=== PATIENT | female | born 1970 | race African-American/Black ===

== ENCOUNTER 2020-09-11 08:40 | Emergency (ER) | payer MEDICAID ==
[2020-09-11] MEDS ORDERED: Morphine 4 MG/ML Syringe IVPUSH PRN (08:51)
[2020-09-11] MEDS ORDERED: Sodium Chloride 0.9% 10 ML Syringe FLUSH PRN (08:51)
[2020-09-11] MEDS ORDERED: Nitroglycerin 0.4 MG Tab.SL SL PRN (08:51)
[2020-09-11] MEDS ORDERED: Ondansetron 4 MG/2 ML SDV IVPUSH ONE (08:52)
--- NOTE | 2020-09-11 08:53 | EDM.PDOC ---
ED HPI GENERAL MEDICAL PROBLEM - General Stated Complaint: CHEST PAIN Time Seen by Provider: 09/11/20 08:50 Source of Information: Reports: Patient, EMS, RN Notes Reviewed History Limitations: Reports: Language Barrier - History of Present Illness INITIAL COMMENTS - FREE TEXT/NARRATIVE: 50-year-old female presents emergency department a complaint of chest pain, there is a significant language barrier no interpreting services are available due to current outage of software, believed to be sudden onset this morning, did receive 4 baby aspirin this morning by EMS Epigastric Pain Score (Numeric/FACES): 7 - Related Data Allergies Allergy/AdvReac Type Severity Reaction Status Date / Time No Known Allergies Allergy Verified 09/11/20 10:17 Home Meds: Home Meds DULoxetine [Cymbalta] 30 mg PO DAILY 09/11/20 [History] Gabapentin [Neurontin] 800 mg PO TID 09/11/20 [History] Pantoprazole Sodium [Protonix] 40 mg PO DAILY 09/11/20 [History] Sucralfate [Carafate] 1 gm PO QID 09/11/20 [History] hydrOXYzine HCL [Hydroxyzine HCl] 10 mg PO Q6HR PRN 09/11/20 [History] metFORMIN [Glucophage XR] 500 mg PO DAILY 09/11/20 [History] traZODone 50 mg PO BEDTIME 09/11/20 [History] ED ROS GENERAL - Review of Systems Review Of Systems: Unable To Obtain Reason Not Obtained: Language barrier no translation available ED EXAM, GENERAL - Physical Exam Exam: See Below Exam Limited By: Language Barrier General Appearance: Alert, Moderate Distress Respiratory/Chest: No Respiratory Distress, Lungs Clear, Normal Breath Sounds, No Accessory Muscle Use, Chest Non-Tender Cardiovascular: Regular Rate, Rhythm, No Murmur GI/Abdominal: Soft, Non-Tender Course - Vital Signs Last Recorded V/S: Last Vital Signs Temp 96.4 F L 09/11/20 09:14 Pulse 108 H 09/11/20 14:27 Resp 16 09/11/20 14:27 BP 139/89 09/11/20 14:27 Pulse Ox 97 09/11/20 14:27 - Orders/Labs/Meds Orders: Active Orders 24 hr Category Date Time Status Cardiac Monitoring [RC] .As Directed Care 09/11/20 08:51 Active EKG Documentation Completion [RC] ASDIRECTED Care 09/11/20 08:52 Active Peripheral IV Care [RC] . DIRECTED Care 09/11/20 08:52 Active Morphine Med 09/11/20 08:51 Active 4 mg IVPUSH Q10M PRN Nitroglycerin [Nitrostat] Med 09/11/20 08:51 Active 0.4 mg SL Q5M PRN Sodium Chloride 0.9% [Saline Flush] Med 09/11/20 08:51 Active 10 ml FLUSH ASDIRECTED PRN Peripheral IV Insertion Adult [OM.PC] Stat Oth 09/11/20 08:51 Ordered Saline Lock Insert [OM.PC] Stat Oth 09/11/20 08:51 Ordered EKG 12 Lead [EK] Stat Ther 09/11/20 08:52 Ordered Medication Orders Morphine Sulfate (Morphine) 4 mg IVPUSH Q10M PRN PRN Reason: Chest Pain Stop: 09/12/20 08:51 Last Admin: 09/11/20 09:12 Dose: 4 mg Documented by: PREILOR Nitroglycerin (Nitrostat) 0.4 mg SL Q5M PRN PRN Reason: Chest Pain Stop: 09/12/20 08:51 Last Admin: 09/11/20 09:14 Dose: 0.4 mg Documented by: PREILOR Sodium Chloride (Saline Flush) 10 ml FLUSH ASDIRECTED PRN PRN Reason: Keep Vein Open Labs: Laboratory Tests 09/11/20 09/11/20 09/11/20 Range/Units 09:00 09:00 12:11 WBC 11.2 H (4.5-11.0) K/uL RBC 4.19 (3.30-5.50) M/uL Hgb 12.8 (12.0-15.0) g/dL Hct 39.2 (36.0-48.0) % MCV 94 (80-98) fL MCH 31 (27-31) pg MCHC 33 (32-36) % Plt Count 207 (150-400) K/uL Neut % (Auto) 76 H (36-66) % Lymph % (Auto) 17 L (24-44) % [place] % (Auto) 5 (2-6) % Eos % (Auto) 1 L (2-4) % Baso % (Auto) 1 (0-1) % Sodium 138 L (140-148) mmol/L Potassium 3.3 L (3.6-5.2) mmol/L Chloride 101 (100-108) mmol/L Carbon Dioxide 28 (21-32) mmol/L Anion Gap 12.3 (5.0-14.0) mmol/L BUN 16 (7-18) mg/dL Creatinine 0.7 (0.6-1.0) mg/dL Est Cr Clr Drug Dosing 69.83 mL/min Estimated GFR (MDRD) > 60 (>60) Glucose 167 H (74-106) mg/dL Calcium 8.9 (8.5-10.1) mg/dL Total Bilirubin 0.2 (0.2-1.0) mg/dL AST 17 (15-37) U/L ALT 18 (12-78) U/L Alkaline Phosphatase 99 (46-116) U/L Troponin I < 0.017 (0.000-0.056) ng/mL Total Protein 8.2 (6.4-8.2) g/dL Albumin 3.6 (3.4-5.0) g/dL Globulin 4.6 H (2.3-3.5) g/dL Albumin/Globulin Ratio 0.8 L (1.2-2.2) Lipase 157 (73-393) U/L Urine Opiates Screen Presumptive positive H (NEGATIVE) Ur Oxycodone Screen Negative (NEGATIVE) Urine Methadone Screen Negative (NEGATIVE) Ur Propoxyphene Screen Negative (NEGATIVE) Ur Barbiturates Screen Negative (NEGATIVE) Ur Tricyclics Screen Negative (NEGATIVE) Ur Phencyclidine Scrn Negative (NEGATIVE) Ur Amphetamine Screen Negative (NEGATIVE) U Methamphetamines Scrn Negative (NEGATIVE) Urine MDMA Screen Negative (NEGATIVE) U Benzodiazepines Scrn Presumptive positive H (NEGATIVE) U Cocaine Metab Screen Negative (NEGATIVE) U Marijuana (THC) Screen Presumptive positive H (NEGATIVE) Meds: Medications Generic Name Dose Route Start Last Admin Trade Name Freq PRN Reason Stop Dose Admin Morphine Sulfate 4 mg 09/11/20 08:51 09/11/20 09:12 Morphine IVPUSH 09/12/20 08:51 4 mg Q10M PRN Administration Chest Pain Nitroglycerin 0.4 mg 09/11/20 08:51 09/11/20 09:14 Nitrostat SL 09/12/20 08:51 0.4 mg Q5M PRN Administration Chest Pain Sodium Chloride 10 ml 09/11/20 08:51 Saline Flush FLUSH ASDIRECTED PRN Keep Vein Open Discontinued Medications Generic Name Dose Route Start Last Admin Trade Name Freq PRN Reason Stop Dose Admin Al Hydroxide/Mg Hydroxide 15 0 ml 09/11/20 09:27 09/11/20 09:47 ml/ Lidocaine HCl 15 ml PO 09/11/20 09:28 30 ml ONETIME ONE Administration Fentanyl 50 mcg 09/11/20 09:03 Sublimaze IM 09/11/20 09:04 ONETIME ONE Fentanyl 50 mcg 09/11/20 11:14 09/11/20 11:29 Sublimaze IVPUSH 09/11/20 11:15 50 mcg ONETIME ONE Administration Fentanyl 50 mcg 09/11/20 12:42 09/11/20 12:47 Sublimaze IVPUSH 09/11/20 12:43 50 mcg ONETIME ONE Administration Lactated Ringer's 1,000 mls @ 999 mls/hr 09/11/20 12:08 09/11/20 12:23 Ringers, Lactated IV 09/11/20 13:08 999 mls/hr BOLUS ONE Administration Lorazepam 1 mg 09/11/20 09:37 09/11/20 09:43 Ativan IVPUSH 09/11/20 09:38 1 mg ONETIME ONE Administration Lorazepam 1 mg 09/11/20 12:09 09/11/20 12:28 Ativan IVPUSH 09/11/20 12:10 1 mg ONETIME ONE Administration Ondansetron HCl 4 mg 09/11/20 08:52 09/11/20 09:11 Zofran IVPUSH 09/11/20 08:53 4 mg ONETIME ONE Administration Pantoprazole Sodium 40 mg 09/11/20 11:14 09/11/20 11:25 Protonix Iv IVPUSH 09/11/20 11:15 40 mg ONETIME ONE Administration Sumatriptan Succinate 6 mg 09/11/20 12:11 09/11/20 12:26 Imitrex SUBCUT 09/11/20 12:12 6 mg ONETIME ONE Administration - Re-Assessments/Exams Free Text/Narrative Re-Assessment/Exam: 09/11/20 12:12 Did receive old records from [facility] admission this summer to visits both hospital admission emergency department she has a history of similar events does have a history of esophagitis anxiety as well as HIV and hepatitis C she also has a history of medical compliance and cannabis use does become histrionic and dramatic at times 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 CT scan lab work was unremarkable during both admissions and at [facility] Departure - Departure Time of Disposition: 14:49 Disposition: Home, Self-Care 01 Condition: Fair Clinical Impression: Cannabinoid hyperemesis syndrome Instructions: Nausea and Vomiting, Adult Referrals: PCP,None [Primary Care Provider] - Additional Instructions: Use the Zofran as needed for nausea vomiting symptoms please follow-up with primary care in the next 3 to 5 days for further evaluation, call return to the emergency department worsening of symptoms, Sepsis Event Note (ED) - Focused Exam Vital Signs: Vital Signs Temp Pulse Pulse Resp BP BP BP 09/11/20 14:27 108 H 16 139/89 09/11/20 12:05 86 22 H 175/111 H 09/11/20 11:05 88 18 137/70 09/11/20 10:16 84 16 128/60 09/11/20 09:15 96 16 171/87 H 09/11/20 09:14 96.4 F L 87 20 171/87 H 163/80 H Pulse Ox 09/11/20 14:27 97 09/11/20 12:05 97 09/11/20 11:05 100 09/11/20 10:16 98 09/11/20 09:15 97 09/11/20 09:14 97 - My Orders Last 24 Hours: My Active Orders 09/11/20 08:51 Cardiac Monitoring [RC] .As Directed Morphine 4 mg IVPUSH Q10M PRN Nitroglycerin [Nitrostat] 0.4 mg SL Q5M PRN Sodium Chloride 0.9% [Saline Flush] 10 ml FLUSH ASDIRECTED PRN Peripheral IV Insertion Adult [OM.PC] Stat Saline Lock Insert [OM.PC] Stat 09/11/20 08:52 EKG Documentation Completion [RC] ASDIRECTED Peripheral IV Care [RC] . DIRECTED EKG 12 Lead [EK] Stat - Assessment/Plan Last 24 Hours: My Active Orders 09/11/20 08:51 Cardiac Monitoring [RC] .As Directed Morphine 4 mg IVPUSH Q10M PRN Nitroglycerin [Nitrostat] 0.4 mg SL Q5M PRN Sodium Chloride 0.9% [Saline Flush] 10 ml FLUSH ASDIRECTED PRN Peripheral IV Insertion Adult [OM.PC] Stat Saline Lock Insert [OM.PC] Stat 09/11/20 08:52 EKG Documentation Completion [RC] ASDIRECTED Peripheral IV Care [RC] . DIRECTED EKG 12 Lead [EK] Stat Plan: Assessment Acuity = acute Site and laterality = cannabinoid vomiting syndrome complicated patient with gastroesophageal reflux disease Etiology = cannabis Manifestations = nausea and vomiting abdominal pain Location of injury = Home Lab values = CBC, CMP, troponin all within normal limits EKG demonstrates sinus rhythm chest x-ray shows no acute process Plan After IV fluids Ativan did try sumatriptan hand as well as fentanyl for pain control we will get her vomiting under control she is pain-free at this time she admits to smoking cannabis about a week prior and she has not been taking her medications for her reflux disease. She will need to establish with a primary care physician here in [place] as she no longer lives in [place] I have asked her to follow-up with primary care in the next 3 to 5 days for further evaluation prescription written for Zofran ODT 1 tab p.o. 3 times daily as needed total #5 This note was dictated using [employer] voice recognition software please call with any questions on syntax or grammar.
[2020-09-11] MEDS ORDERED: fentaNYL 100 MCG/2 ML SDV IM ONE (09:03)
[2020-09-11] MEDS ORDERED: Alum Hydrox/Mag Hydrox/Simeth 15 ML, Lidocaine 2% 15 ML PO ONE ×2 (09:27)
[2020-09-11] MEDS ORDERED: LORazepam 2 MG/ML SDV IVPUSH ONE ×2 (09:37→12:09)
--- NOTE | 2020-09-11 10:11 | CR ---
CHEST: Portable 09/11/2020 at 9:57 AM CLINICAL HISTORY:Chest pain COMPARISON:None FINDINGS: Heart is mildly enlarged. Pulmonary vascularity is normal. Lung jarrett are clear. There are no effusions. Impression: Mild cardiomegaly No acute cardiopulmonary process
[2020-09-11] MEDS ORDERED: fentaNYL 100 MCG/2 ML SDV IVPUSH ONE ×2 (11:14→12:42)
[2020-09-11] MEDS ORDERED: Pantoprazole 40 MG Vial IVPUSH ONE (11:14)
[2020-09-11] MEDS ORDERED: Lactated Ringers 1,000 ML IV ONE (12:08)
[2020-09-11] MEDS ORDERED: SUMAtriptan 6 MG/0.5 ML SDV SUBCUT ONE (12:11)
== END 2020-09-11 15:15 | disposition home or self-care (01) ==
LOC: JP.ED 08:40
DX: R11.10 Vomiting, unspecified (principal); R07.9 Chest pain, unspecified
CPT/HCPCS: 36415; 71045; 71045-26; 80053; 80305-QW; 83690; 84484; 85025; 93005; 96372; 96374; 96375; 96376; 99285-25; A9270-GY; C9113; J2060; J2270; J2405; J3010; J3030; J7120